=== PATIENT | female | born 1985 | race Caucasian/White ===

== ENCOUNTER 2022-08-05 11:08 | Emergency (ER) | payer OTHER, SELFPAY ==
[2022-08-05 11:10] VITALS: BP 158/103; PULSE 90; RESP 18; TEMP 36.7; O2SAT 100; BMI 21.2
--- NOTE | 2022-08-05 11:14 | EX.ED.DYSGE1 ---
HPI History of Present Illness Chief Complaint: Dizziness [facility] Medical History (Updated 08/05/22 @ 11:36 by Nery Sanches) History of ectopic Home Medications 08/05/22 [History Last Taken Unknown] promethazine 25 mg tablet 25 mg PO TID PRN nausea and vomiting #15 tabs 08/05/22 [Rx Last Taken Unknown] Allergy/AdvReac Type Severity Reaction Status Date / Time No Known Allergies Allergy Verified 08/05/22 11:11 Surgical History (Updated 08/05/22 @ 11:36 by Nery Sanches) History of tonsillectomy Social History Smoking Status: Never smoker EXAM Physical Exam Const Vital Signs: 08/05/22 11:10 08/05/22 11:34 08/05/22 11:34 Temperature 98.1 F Temperature Source Temporal Pulse Rate 90 97 Respiratory Rate 18 12 Respiratory Effort Normal Respiratory Pattern Normal Blood Pressure 158/103 H 130/83 H Blood Pressure Mean 121 98 Pulse Ox 100 100 Oxygen Delivery Method Room Air Room Air 08/05/22 13:14 08/05/22 14:50 Temperature 98.5 F Temperature Source Temporal Pulse Rate 115 H 82 Respiratory Rate 18 14 Respiratory Effort Respiratory Pattern Blood Pressure 132/81 H 110/72 Blood Pressure Mean 98 84 Pulse Ox 100 100 Oxygen Delivery Method Room Air Room Air MDM MDM MDM Narrative Medical decision making narrative: HISTORY OF PRESENT ILLNESS: 37-year-old female here with nausea, dizziness and blurred vision that began yesterday. The patient further states this began suddenly this morning with no inciting event. States she felt abdominal pain/crampy then felt flushed nauseous and dizzy. She notes she took Zofran at home with only minimal improvement in nausea. She denies any chest pain or shortness of breath or abdominal pain at this point. States her last period 4 weeks ago. Denies any vaginal bleeding or discharge. Denies any dysuria, hematuria, increased frequency of urination. Denies any diarrhea, recent travel. Denies any focal numbness, weakness, loss sensation, headache or head trauma. Patient does endorse drinking 1 beer last night which is typical for her. She denies excessive drinking or drinking on a daily basis. Denies any other drug use such as cocaine or methamphetamine. REVIEW OF SYSTEMS: Pertinent positives: Nausea, dizziness, blurry vision Pertinent negatives: focal weakness, syncope, headache, chest pain PHYSICAL EXAM: Nursing triage notes reviewed, Vital signs reviewed Constitutional: please see [facility] HENT: MMM Eyes: Pupils equal round and reactive to light, Extraocular muscles intact, visual acuity 20/25 bilaterally, visual pond intact Neck: No stridor, no JVD, full neck ROM Lungs: Clear to auscultation, No wheezing or rales. No increased work of breathing, no conversational dyspnea, no accessory muscle use, no nasal flaring. No respiratory distress noted Heart: Regular rate and rhythm, No murmurs, No rubs and No gallops, 2+ distal pulses (radial, femoral, posterior tibial) in all extremities Abdomen: Soft, there is no tenderness, rigidity, rebound or guarding, no obvious peritoneal signs, no palpable pulsatile abdominal masses, no auscultated abdominal bruit : No CVAT Extremities: No edema Neuro: Alert and oriented x3, neuro exam at baseline, cranial nerves II through XII are intact. No pain with extraocular muscle movement. There is negative test of skew. Normal speech. 5 of 5 strength in upper and lower extremities in flexion extension. Intact sensation to light touch in upper and lower extremity dermatomes. No truncal or extremity ataxia. No dysdiadochokinesia. Normal gait. 2+ reflexes. No meningeal signs. Negative Babinski. NIH of 0 Skin: No rash or lesions noted MEDICAL DECISION MAKING: Chief Complaint: Nausea, dizziness, blurred vision External records reviewed: No recent advanced imaging of the head noted in the chart [facility] Narrative: Patient was initially hemodynamically stable, afebrile, nontoxic-appearing. Neurologic exam without focal deficits. No focal cardiopulmonary abnormalities but abdominal exam was benign. I considered the following differential diagnosis: Posterior circulation CVA, dehydration, anemia, , intra-abdominal surgical pathology such as obstruction, perforation, I considered a posterior circulation CVA or other acute intracranial process given the patient's report of dizziness however she has a nonfocal neuro exam, NIH of 0 and a negative hints assessment. I have a low suspicion for acute CVA at this time and as such I do not obtain advanced imaging of the head. I was more concerned about a vasovagal response versus electrolyte abnormalities versus dehydration versus versus anemia. I obtained a broad lab and imaging work-up to further elucidate the etiology of the patient's complaints. Labs without evidence of myocardial ischemia, no anemia, no significant electrolyte abnormalities (noted mild hypokalemia will replace). No evidence of pancreatitis. Patient able to tolerate p.o. Repeat neurologic exams remained intact. There are no focal deficits. No clear life-limiting etiology could be ascertained. The patient ambulate without difficulty she is appropriate for discharge home. Factors affecting care: None Social determinants of health: Drank alcohol last night History obtained from others: The patient's Shared decision making: I will have a discussion with the patient and or visitors regarding risk/benefits of further testing or admission. They will be made aware of of the risk/benefits inherent in this decision they will be given the opportunity to voice understanding. Consults: None Lab Data Attestation: I reviewed the patient's lab results. Lab results narrative: EKG with normal sinus rhythm, normal axis, normal intervals, no STEMI CBC without leukocytosis, severe anemia, no thrombocytopenia. BMP with mild hypokalemia, no anion gap, no acute kidney injury LFTs show no evidence of hepatobiliary pathology. Troponin is negative, no evidence of myocardial ischemia Lipase is wnl indicating no pancreatic inflammation. Labs: Laboratory Results - last 24 hr 08/05/22 08/05/22 08/05/22 11:40 11:40 12:10 WBC 8.1 RBC 4.80 Hgb 13.6 Hct 40.7 MCV 84.8 MCH 28.3 MCHC 33.4 RDW Std Deviation 38.7 RDW Coeff of Terrence 12.5 Plt Count 301 MPV 11.4 Immature Gran % (Auto) 0.200 Neut % (Auto) 75.0 H Lymph % (Auto) 18.6 L [place] % (Auto) 4.2 Eos % (Auto) 1.6 Baso % (Auto) 0.4 Absolute Neuts (auto) 6.1 Absolute Lymphs (auto) 1.51 Nucleated RBC % 0 Sodium 140 Potassium 3.1 L Chloride 107 Carbon Dioxide 21.0 Anion Gap 12 BUN 8 Creatinine 0.82 Estim Creat Clear Calc 79.21 Est GFR (MDRD) Af Amer 102 Est GFR (MDRD) Non-Af 84 BUN/Creatinine Ratio 9.8 L Glucose 149 H Calcium 9.1 Total Bilirubin 0.40 AST 12 L ALT 16 Alkaline Phosphatase 72 Troponin I High Sens < 3 L Total Protein 8.0 Albumin 3.8 Globulin 4.2 Albumin/Globulin Ratio 0.9 Lipase 36 Urine Test Negative Radiography Chest X-Ray - ED: Read by ED Physician Diagnostic Testing: Clinical Impression(s) from Imaging Studies Chest X-Ray 08/05/22 12:25 IMPRESSION: Normal x-ray examination of the chest. Electronically Signed: Isael Lepe MD at 13:19 EDT Reading Location ID and State: [address] [place] [address] , Service support , Discharge Plan Triage Chief Complaint: Dizziness ED Provider: Malcolm Nuñez Dx/Rx/DC Orders Instructions: ED Near-Fainting- Vagal Reaction Prescriptions: New promethazine 25 mg tablet 25 mg PO TID PRN (Reason: nausea and vomiting) Qty: 15 0RF No Action Stand Alone Forms: ED Work / School Excuse Primary Care Provider: Care Physician,No Primary Referrals: Fransisco Garcia MD [Med Staff - [employer] Member] - Activity Restrictions/Additional Instructions: Thank you for trusting us with your care today! Please take Tylenol (2 pills, 650 mg), ibuprofen (2 pills, 400 mg) every 6 hours as needed for pain and fever control. Please return to the emergency department if your symptoms change or worsen. Please follow with your primary care physician for further outpatient evaluation and management. Disposition Disposition: Home, Self Care Discharge Date/Time: 08/05/22 15:01
[2022-08-05 11:34] VITALS: BP 130/83; PULSE 97; RESP 12; O2SAT 100
--- NOTE | 2022-08-05 11:37 | EKG12_ITS ---
Test Reason : DIZZINESS Blood Pressure : / mmHG Vent. Rate : 087 BPM Atrial Rate : 087 BPM P-R Int : 132 ms QRS Dur : 078 ms QT Int : 368 ms P-R-T Axes : 073 089 055 degrees QTc Int : 442 ms Normal sinus rhythm with sinus arrhythmia Nonspecific ST abnormality Abnormal ECG Confirmed by AIME MAI, JOSE DANIEL ([id number]), publishing editor VIPIN LYONS ([id number]) on 08/07/2022 10:46:56 AM Referred By: Confirmed By:JOSE DANIEL SALOMON MD
[2022-08-05 11:48] LABS: Absolute Lymphocyte Count 1.51 X10^3/uL (0.83-4.51); Absolute Neutrophil Count 6.1 X10^3/uL (2.0-7.7); Basophil# 0.03 X10^3/uL; Basophil% 0.4 % (0-1); Eosinophil# 0.13 X10^3/uL; Eosinophils% 1.6 % (0-5); Hematocrit 40.7 % (37-47); Hemoglobin 13.6 g/dL (12.0-15.0); Lymphocyte # 1.51 X10^3/ul (0.83-4.51); Lymphocyte % 18.6 % (19-41); Mean Corp Hgb Conc 33.4 g/dL (32-36); Mean Corpuscular Hgb 28.3 pg (27.0-32.0); Mean Corpuscular Volume 84.8 fL (81-99); Mean Platelet Vol. 11.4 fl (6.2-12.0); Monocyte# 0.34 X10^3/uL; Monocyte% 4.2 % (0-10); NRBC Flagged by Analyzer 0 % (0-5); Neutrophil # 6.08 X10^3/uL (2.7-7.7); Platelet Count 301 K/mm3 (150-450); RBC Distribution Width CV 12.5 % (11.6-14.6); RBC Distribution Width SD 38.7 fl (35.1-43.9); White Blood Count 8.1 K/mm3 (4.4-11.0)
[2022-08-05] MEDS: proMETHazine 25 MG/ML Syringe IM (11:51)
[2022-08-05] MEDS: 0.9% Normal Saline 1,000 ML 1000 ML IV (11:51)
[2022-08-05 12:07] LABS: ALB/GLOB Ratio 0.9 RATIO (0.9-2.4); AST(SGOT) 12 U/L (15-37); Alanine Aminotransfer ALT/SGPT 16 U/L (13-56); Albumin, Serum 3.8 g/dL (3.2-5.0); Alkaline Phosphatase 72 U/L (45-117); Anion Gap 12 (5-15); BUN 8 mg/dL (7-18); BUN/Creat Ratio 9.8 RATIO (10-20); Calcium,Total 9.1 mg/dL (8.5-10.1); Chloride 107 mmol/L (98-107); Creatinine, Serum 0.82 mg/dL (0.55-1.02); EST Glomerular Filtration Rate 84 mL/min (>60); Est Glom Filt Rate - Afr Amer 102 mL/min (>60); Estimated Creatinine Clearance 79.21 ml/min; Globulin 4.2 g/dL (2.2-4.2); Glucose 149 mg/dL (74-106); Lipase 36 U/L (13-75); Potassium 3.1 mmol/L (3.5-5.1); Sodium Level 140 mmol/L (136-145); Troponin-I HS < 3 pg/mL (3.0-54.0)
[2022-08-05 12:25] LABS: Internal QC Validated? YES +Cl - CLEAR BKGD; Pregnancy, Urine Negative Negative
--- NOTE | 2022-08-05 12:25 | RAD_ITS ---
STUDY: X-RAY CHEST REASON FOR EXAM: Female, 37 years old. Dizziness TECHNIQUE: 2 AP portable view of the chest. COMPARISON: None. FINDINGS: The lungs are clear and expanded. There is no demonstrated pleural abnormality. Normal size heart. Normal mediastinum and daniel. Normal visualized pulmonary arteries. Normal visualized aortic arch and descending thoracic aorta. Normal visualized thoracic spine. Normal visualized ribs, clavicles, and shoulders. There is no demonstrated abnormality of the visualized soft tissue structures of the upper abdomen. RAD/Chest 1 View (Portable) IMPRESSION: Normal x-ray examination of the chest. Electronically Signed: Isael Lepe MD at 13:19 EDT ,
[2022-08-05] MEDS: Potassium Chloride Oral Tablet 20 MEQ 40 MEQ PO (13:13)
[2022-08-05 13:14] VITALS: BP 132/81; PULSE 115; RESP 18; O2SAT 100
[2022-08-05 14:50] VITALS: BP 110/72; PULSE 82; RESP 14; TEMP 36.9; O2SAT 100
== END 2022-08-05 15:01 | disposition home or self-care (01) ==
PROVIDERS: Emergency Provider Emergency Medicine; Visit Provider Emergency Medicine
DX: R42 Dizziness and giddiness (principal); E87.6 Hypokalemia; R11.0 Nausea; H53.8 Other visual disturbances
CPT/HCPCS: 71045; 80053; 81025; 83690; 84484; 85025; 93005; 96360; 96372; 99284; J7030; A4216

== ENCOUNTER 2023-05-14 07:00 | Inpatient (IN) | payer OTHER, SELFPAY ==
[2023-05-14] VITALS (32 sets, daily range): BP systolic 110–168; BP diastolic 11–92; PULSE 76–117; RESP 16; TEMP 36.3–37.5; O2SAT 98–100; BMI 26.6
--- OUTSIDE RECORDS SUMMARY | 2023-05-14 07:08 | XMS RPT_ITS | CCD ---
Author Name Unknown Address [address] [place] [address] Organization [facility] Care Team Providers Care Container Finisher Name Role Phone Unavailable Primary Care Provider Unavailabl e GRACE, KARMON Referring Unavailable GRACE, KARMON Referring Unavailable MELANIE, JACOB L Referring Unavailable MELANIE, JACOB L Referring Unavailable SELF Referring Unavailable RAFAELA ROSE Attending Unavailable PROMISE, CONNIE Attending Unavailable PROMISE, CONNIE Attending Unavailable GRACE, KARMON Referring Unavailable MARIA EUGENIA SANCHEZ Attending Unavail able MELANIE, JACOB L Attending Unavailable MELANIE, JACOB L Referring Unavailable GRACE, KARMON Attending Unavailable GRACE, KARMON Attending Unavailable MELANIE, JACOB L Referring Unavailable GRACE, KARMON Attending Unavailable GRACE, KARMON Referring Unavailable GRACE, KARMON Referring Unavailable GRACE, KARMON Referring Unavailable LORRAINE PULLIAM Attending Unavailable MELANIE, JACOB L Attending Unavailable GRACE, KARMON Attending Unavailable MELANIE, JACOB L Attending Unavailable GRACE, KARMON Attending Unavailable PROMISE, CONNIE Attending Unavailable Medications Completed/Discontinued Medications Medication Drug Class(es) Dates Sig (Normalized) Sig (Original) vit/iron fum/folic ac ( 1 + 1 ORAL) (14 sources) vit/iro n fum/folic ac ( 1 + 1 ORAL) Problems Active Problems Problem Classification Problem Date Documented Da te Episodic/Chronic Other complications of (20 sources) Multigravida of advanced maternal age; Translations: [Supervision of elderly multigravida, unspecified trimester] Onset: 09-17-2022 09-17-2022 Episodic Other complications of (5 sources) High risk ; Translations: [Supervision of other high risk pregnancies, first trimester] 10-02-2022 Episodic Other complications of (1 source) Supervision of elderly multigravida, unspecified trimester; Translations: [Encounter for supervision of high risk multigravida of advanced maternal age, antepartum] Onset: 04-01-2023 Episodic Other complications of (1 source) Supervision of elderly multigravida, second trimester; Translations: [AMA (advanced maternal age) multigravida 35+, second trimester] Onset: 02-19-2023 Episodic Residual codes; unclassified (2 sources) Gestation period, 12 weeks; Translations: [12 weeks gestation of ] 10-30-2022 Episodic Residual codes; unclassified (1 source) Gestation period, 16 weeks; Translations: [16 weeks gestation of ] 11-27-2022 Episodic Residual codes; unclassified (1 source) Gestation period, 19 weeks; Translations: [19 weeks gestation of ] 12-24-2022 Episodic Residual codes; unclassified (1 source) Gestation period, 24 weeks; Translations: [24 weeks gestation of ] 01-22-2023 Episodic Residual codes; unclassified (1 source) Gestation period, 37 weeks; Translations: [37 weeks gestation of ] 04-25-2023 Episodic Residual codes; unclassified (1 source) Gestation period, 39 weeks; Translations: [39 weeks gestation of ] 05-08-2023 Episodic Residual codes; unclassified (1 source) 33 weeks gestation of ; Translations: [33 weeks gestation of ] Onset: 04-01-2023 Episodic Residual codes; unclassified (1 source) 24 weeks gestation of ; Translations: [24 weeks gestation of ] Onset: 02-19-2023 Episodic Past or Other Problems Problem Classification Problem Date Documented Date Episodic/Chronic Other complications of (13 sources) H/O: depression; Translations: [History of depression, currently ] Onset: 09-17-2022 09-17-2022 Episodic Other complications of (1 source) Supervision of elderly multigravida, first trimester; Translations: [AMA (advanced maternal age) multigravida 35+, first trimester] Onset: 12-24-2022 Episodic Other complications of (1 source) Supervision of high risk , unspecified, second trimester; Translations: [Supervision of high risk in second trimester] Onset: 12-24-2022 Episodic Other complications of (1 source) Supervision of other high risk pregnancies, first trimester; Translations: [Supervision of other high risk pregnancies, first trimester] Onset: 10-30-2022 Episodic Other complications of (1 source) Supervision of with history of ectopic , unspecified trimester; Translations: [ with history of ectopic , antepartum] Onset: 09-17-2022 Episodic Other and delivery including normal (4 sources) with uncertain dates; Translations: [Encounter for supervision of normal , unspecified, first trimester] Onset: 10-30-2022 10-02-2022 Episodic Other screening for suspected conditions (not mental disorders or infectious disease) (3 sources) Patient encounter status; Translations: [Encounter for screening, unspecified] Onset: 10-30-2022 10-02-2022 Episodic Residual codes; unclassified (15 sources) H/O: ectopic ; Translations: [Personal history of other complications of , childbirth and the puerperium] Onset: 09-17-2022 Episodic Residual codes; unclassified (1 source) 16 weeks gestation of ; Translations: [16 weeks gestation of ] Onset: 11-30-2022 Episodic Residual codes; unclassified (1 source) 12 weeks gestation of ; Translations: [12 weeks gestation of ] Onset: 11-02-2022 Episodic Residual codes; unclassified (1 source) Personal history of other complications of , childbirth and the puerperium; Translations: [History of ectopic ] Onset: 09-11-2022 Episodic Results Test Name Value Interpretation Reference Range Facil ity Vital Signs Date Time Vital Sign Value Performing Clinician Shahram gunderson 05-08-2023 15:47-0500 Body weight 69.4 kg Maria Eugenia Belcher MD Work Phone: [facility] 05-08-2023 15:47-0500 Diastolic blood pressure 78 mm[Hg] Maria Eugenia Belcher MD Work Phone: [facility] 05-08-2023 15:47-0500 Systolic blood pressure 116 mm[Hg] Maria Eugenia Belcher MD Work Phone: [facility] 04-25-2023 16:21-0500 Body weight 68.13 kg Rafaela Rose APRN.CNM Work Phone: [facility] 04-25-2023 16:21-0500 Diastolic blood pressure 62 mm[Hg] Rafaela Rose SERVICE CENTER SPECIALIST.CNM Work Phone: [facility] 04-25-2023 16:21-0500 Systolic blood pressure 104 mm[Hg] Rafaela Rose SERVICE CENTER SPECIALIST.CNM Work Phone: [facility] 01-22-2023 09:40-0400 Body weight 60.33 kg Jacob De Jesus MD Work Phone: [facility] 01-22-2023 09:40-0400 Diastolic blood pressure 56 mm[Hg] Jacob De Jesus MD Work Phone: [facility] 01-22-2023 09:40-0400 Systolic blood pressure 94 mm[Hg] Jacob De Jesus MD Work Phone: [facility] 12-24-2022 11:04-0400 Body weight 57.34 kg Connie Parra MD Work Phone: [facility] 12-24-2022 11:04-0400 Diastolic blood pressure 60 mm[Hg] Connie Parra MD Work Phone: [facility] 12-24-2022 11:04-0400 Systolic blood pressure 96 mm[Hg] Connie Parra MD Work Phone: [facility] 11-27-2022 09:43-0400 Body weight 55.79 kg Jeremias Edwards MD Work Phone: [facility] 11-27-2022 09:43-0400 Diastolic blood pressure 60 mm[Hg] Jeremias Edwards MD Work Phone: [facility] 11-27-2022 09:43-0400 Systolic blood pressure 92 mm[Hg] Jeremias Edwards MD Work Phone: [facility] 10-30-2022 08:52-0400 Body weight 53.89 kg Jeremias Edwards MD Work Phone: [facility] 10-30-2022 08:52-0400 Diastolic blood pressure 68 mm[Hg] Jeremias Edwards MD Work Phone: [facility] 10-30-2022 08:52-0400 Systolic blood pressure 100 mm[Hg] Jeremias Edwards MD Work Phone: [facility] 10-02-2022 10:22-0400 Diastolic blood pressure 64 mm[Hg] Jacob De Jesus MD Work Phone: [facility] 10-02-2022 10:22-0400 Systolic blood pressure 102 mm[Hg] Jacob De Jesus MD Work Phone: [facility] Encounters Encounter Date Encounter Type Care Provider Facility Start: 05-08-2023 End: 05-08-2023 ambulatory MARIA EUGENIA BELCHER Facility:[facility] Start: 05-08-2023 End: 05-08-2023 Patient encounter procedure Maria Eugenia Belcher MD Work Phone: OB/Gynecology Procedures Date Procedure Procedure Detail Performing Clinician Start: 05-08-2023 URINE OB DIP B/O Maria Eugenia Belcher MD Work Phone: Start: 04-25-2023 URINE OB DIP B/O Evita Rose SERVICE CENTER SPECIALIST.CNM Work Phone: Start: 01-22-2023 URINE OB DIP B/O Marcus De Jesus MD Work Phone: Start: 12-24-2022 URINE OB DIP B/O Connie gonzalez MD Work Phone: Start: 11-27-2022 URINE OB DIP B/O Jeremias Edwards MD Work Phone: Start: 10-30-2022 Antibody screen JEREMIAS EDWARDS Plan of Treatment Date Care Activity Detail Author Start: 02-19-2033 Urine microalbumin profile DTaP,Tdap,Td Vaccine (5 - Td or Tdap) [facility] Start: 11-21-2026 HPV TESTING HPV TESTING [facility] Start: 11-21-2026 PAP TESTING PAP TESTING [facility] Start: 11-21-2026 Screening for malignant neoplasm of cervix [facility] Start: 01-04-2026 Urine microalbumin profile DTaP,Tdap,Td Vaccine (2 - Td or Tdap) [facility] Start: 03-25-2023 Depression Assessment Depression Assessment [facility] Start: 01-22-2023 End: 04-23-2023 CBC W Auto Differential panel - Blood CBC + DIFF Lab Routine AMA (advanced maternal age) multigravida 35+, second trimester 24 weeks gestation of Expected: 01/22/2023, Expires: 04/23/2023 [facility] Work Phone: Immunizations Immunization Date Immunization Notes Care Provider Nabila kemp 03-21-2023 respiratory syncytia l virus (RSV) vaccine, bivalent (ABRYSVO) Rafaela Plotts SERVICE CENTER SPECIALIST.CNM Work Phone: [facility] 02-19-2023 tetanus toxoid, redu steffanie diphtheria toxoid, and acellular pertussis vaccine, adsorbed Rafaela Plotts SERVICE CENTER SPECIALIST.CNM Work Phone: [facility] 02-01-2023 influenza, injectabl e, quadrivalent, preservative free Rafaela Plotts SERVICE CENTER SPECIALIST.CNM Work Phone: [facility] 12-04-2017 influenza virus vacc ine, unspecified formulation Connie Parra MD Work Phone: [facility] 12-12-2016 influenza, injectabl e, quadrivalent, preservative free Rafaela Plotts SERVICE CENTER SPECIALIST.CNM Work Phone: [facility] 01-05-2016 influenza, injectabl e, quadrivalent, preservative free Rafaela Plotts SERVICE CENTER SPECIALIST.CNM Work Phone: [facility] Payers Date Payer Category Payer Private Health Insurance [id number] 2022 Private Health Insurance [id number] 2021 Private Health Insurance [id number] 2021 Private Health Insurance [id number] Social History Date Type Detail Facility Start: [facility]-21-[address] [facility] Start: 11-21-2021 Tobacco use and exposure Smoke less tobacco non-user [facility] Start: 11-21-2021 End: 09-11-2022 Alcohol intake Current drinker of alcohol (finding) [facility] Start: 1985 Sex Assigned At Not on file [facility] Start: 09-17-2022 End: 04-25-2023 Alcohol intake Ex-drinker (finding) [facility] Start: 09-17-2022 Education 15 [facility] Start: 08-21-2022 [facility] Start: 09-17-2022 End: 10-02-2022 History of Social function [facility] Start: 09-17-2022 End: 10-02-2022 Tobacco use panel [facility] National Score (1-10 0), lower number is lower risk 60 [facility] Goals Date Patient Goal Desired Activity /State Personal health goal Clinical Notes 08-15-2020 to 05-08-2023 Quick Notes - Maria Eugenia Sanchez MD - 05/08/2023 4:10 PM ESTPatient InstructionsVipin Saleh - 05/01/2023 1:20 PM ESTPatient InstructionsPatient InstructionsPatient Instructions Note Date & Type Note Facility 05-08-2023 Miscellaneous Notes Formattin g of this note might be different from the original. DM- Pt doing well today. Denies Vaginal Bleeding, Leaking fluid, or contractions. Pt reports good movement. Declines membrane sweep. IOL scheduled at 40 weeks. Kick counts and labor reviewed. Maria Eugenia Olivas MD documented in this encounter [facility] 05-08-2023 Instructions Shila Lang Ma - 05/08/2023 3:46 PM EST SEQUENTIAL SCREENINGS The [facility] offers sequential screenings for women who are interested in screenings for chromosomal abnormalities and certain defects during a . The sequential screen combines ultrasound and blood tests to determine the risk of chromosomal abnormalities, including Down's Syndrome (Trisomy 21) and Trisomy 18, as well as open neural tube defects including spina bifida. Ultrasound examination is performed between 11 weeks and 13 weeks gestational age. Blood tests are drawn after the ultrasound and again later in the between 15 and 21 weeks gestational age. Please let your physician know if you are interested in this testing. It will require an appointment with our fire alarm technician. This is not an ultrasound performed by a physician in our office during a routine visit. SIGNS AND SYMPTOMS OF LABOR 1. Contractions every 10 minutes or more often 2. Clear, pink, or brownish fluid (water) leaking from vagina 3. Feeling that baby is pushing down, pressure 4. Low, dull backache 5. Cramps that feel like a period 6. Cramps with or without diarrhea If you notice any of the above symptoms, contact our office at [phone] and ask to speak with a nurse. After hours, you can call doctors registry at [phone] OR call [facility] at [phone] and ask to have the doctor machine ironer paged. If you consider this an emergency, dial 91 or go to your nearest emergency department. NEED HELP? Are you dealing with a violent or abusive relationship? Are you a victim of rape or sexual assult? Call [facility] ([place]) 24 hour Crisis Hotline: 662.269.5472 or 713-515-7135. MANUAL Your Guide to a Healthy manual is now on-line. Visit [email or web address] to download your free copy documented in this encounter [facility] 05-01-2023 Note HNO ID: [id number] Author: ?, ?, ? Service: ? Author Type: ? Type: Progress Notes Filed: 05/01/2023 13:26 Note Text: POPULATION HEALTH NAVIGATION OUTREACH Action/FY Patient called back and said that she selected [facility]. Updated OB/PEDS field. OB/PEDS Patient Identified by Name and : YES, via phone Outreach Outcome/Action OB/PEDS field updated Did you use a PCP flex slot to schedule this appointment? N/A Navigation Signature: Vipin Gaviria May 01, 2023 1:20 PM [facility] 05-01-2023 Note Patient Outreach (FERN TNJACE) TRUONGTAM ([id number]) 1985 F Date Time Provider Department 05/01/23 VIPIN MACIAS) TALI During your visit today, we recorded the following information about you: Vipin Saleh 05/01/2023 1:26 PM Signed POPULATION HEALTH NAVIGATION OUTREACH Action/FYI Patient called back and said that she selected [facility]. Updated OB/PEDS field. OB/PEDS Patient Identified by Name and : YES, via phone Outreach Outcome/Action OB/PEDS field updated Did you use a PCP flex slot to schedule this appointment? N/A Navigation Signature: Vipin Gaviria May 01, 2023 1:20 PM Allergies As of Date: 05/01/2023 (No Known Allergies) Date Reviewed: 04/29/2023 Reviewed by: Meera Lai Ma - Fully Assessed Reason for Visit: Population Health Navigation Outreach [[id number]] Cmt: OB/PEDS Prescriptions as of 05/01/2023 - vit/iron fum/folic ac ( 1 + 1 ORAL) Problem List As Of Date 05/01/2023 Noted Resolved Antepartum multigravida of advanced maternal ag*09/17/2022 with history of ectopic , an*09/17/2022 History of depression, currently pre*09/17/2022 Encounter Status:Closed by VIPIN SALEH on 05/01/23 [facility] 05-01-2023 History of Presen t illness Narrative POPULATION HEALTH NAVIGATION OUTREACH Action/FYI Patient called back and said that she selected [facility]. Updated OB/PEDS field. OB/PEDS Patient Identified by Name and : YES, via phone Outreach Outcome/Action OB/PEDS field updated Did you use a PCP flex slot to schedule this appointment? N/A Navigation Signature: Vipin Gaviria May 01, 2023 1:20 PM documented in this encounter [facility] 04-25-2023 Miscellaneous Notes Formattin g of this note might be different from the original. Tam Guerin is a 38 year old female who presents at 37w2d for a routine visit. Good movement. Denies headache, visual changes, chest pain, shortness of breath, vaginal bleeding, leakage of fluid, or dysuria. Feeling well, no complaints. Size equal to dates. 32 lbs TWG. ASSESSMENT/PLAN: 1. Encounter for supervision of high risk multigravida of advanced maternal age, antepartum - ICD9: V23.82, ICD10: O09.529 (primary diagnosis) 2. 37 weeks gestation of - ICD9: V22.2, ICD10: Z3A.37 3. AMA (advanced maternal age) multigravida 35+, second trimester - ICD9: 659.63, ICD10: O09.522 - MOD- patient desires induction of labor at 40 weeks - GBS negative - Labor precautions reviewed. RTC in 1 week or sooner if needed Rafaela Rose APRN.CNM documented in this encounter [facility] 04-25-2023 Instructions Shabbir Vera Cma - 04/25/2023 4:16 PM EST SEQUENTIAL SCREENINGS The [facility] offers sequential screenings for women who are interested in screenings for chromosomal abnormalities and certain defects during a . The sequential screen combines ultrasound and blood tests to determine the risk of chromosomal abnormalities, including Down's Syndrome (Trisomy 21) and Trisomy 18, as well as open neural tube defects including spina bifida. Ultrasound examination is performed between 11 weeks and 13 weeks gestational age. Blood tests are drawn after the ultrasound and again later in the between 15 and 21 weeks gestational age. Please let your physician know if you are interested in this testing. It will require an appointment with our fire alarm technician. This is not an ultrasound performed by a physician in our office during a routine visit. SIGNS AND SYMPTOMS OF LABOR 1. Contractions every 10 minutes or more often 2. Clear, pink, or brownish fluid (water) leaking from vagina 3. Feeling that baby is pushing down, pressure 4. Low, dull backache 5. Cramps that feel like a period 6. Cramps with or without diarrhea If you notice any of the above symptoms, contact our office at [phone] and ask to speak with a nurse. After hours, you can call doctors registry at [phone] OR call [facility] at [phone] and ask to have the doctor machine ironer paged. If you consider this an emergency, dial [phone] or go to your nearest emergency department. NEED HELP? Are you dealing with a violent or abusive relationship? Are you a victim of rape or sexual assult? Call [facility] ([place]) 24 hour Crisis Hotline: 847.299.6405 or 810-358-1900. MANUAL Your Guide to a Healthy manual is now on-line. Visit [email or web address] to download your free copy documented in this encounter [facility] 02-19-2023 Note HNO ID: [id number] Author: Teresa Miranda Ma Service: ? Author Type: ? Type: Progress Notes Filed: 02/19/2023 12:32 PM Note Text: Patient identified by name and date of . Tam Guerin presents today for a vaccination of Tdap. Patient denies an allergy to latex: yes Patient denies a severe (life-threatening) allergy to a previous dose of Tdap, DTP, DTaP, DT or Td vaccine. Yes Patient denies history of epilepsy or neurological problems: Yes Patient is afebrile and denies being moderately or severely ill: Yes Patient denies history of Guillain-[place] Syndrome (a severe paralytic illness): Yes Tdap Adacel injection was given without incident. See immunizations for details of immunizations administered today. VIS sheet provided: Yes Provider Jeremias Edwards MD was present in office at time of injection. [facility] 01-22-2023 Miscellaneous Notes Formattin g of this note might be different from the original. RR- VB No. LOF No. CTXS No. Movement: present. Other c/o: No. Medication list reviewed. Physical Exam See Flow Sheet Abd: soft, nontender, gravid Ext: edema: Trace A/P 24w0d Estimated Date of Delivery: 05/14/23 28 week labs next visit f/u in 4 weeks or prn . Jacob De Jesus M.D. documented in this encounter [facility] 01-22-2023 Instructions Precious Jones Shila - 01/22/2023 9:36 AM EDT SEQUENTIAL SCREENINGS The [facility] offers sequential screenings for women who are interested in screenings for chromosomal abnormalities and certain defects during a . The sequential screen combines ultrasound and blood tests to determine the risk of chromosomal abnormalities, including Down's Syndrome (Trisomy 21) and Trisomy 18, as well as open neural tube defects including spina bifida. Ultrasound examination is performed between 11 weeks and 13 weeks gestational age. Blood tests are drawn after the ultrasound and again later in the between 15 and 21 weeks gestational age. Please let your physician know if you are interested in this testing. It will require an appointment with our fire alarm technician. This is not an ultrasound performed by a physician in our office during a routine visit. SIGNS AND SYMPTOMS OF LABOR 1. Contractions every 10 minutes or more often 2. Clear, pink, or brownish fluid (water) leaking from vagina 3. Feeling that baby is pushing down, pressure 4. Low, dull backache 5. Cramps that feel like a period 6. Cramps with or without diarrhea If you notice any of the above symptoms, contact our office at [phone] and ask to speak with a nurse. After hours, you can call doctors registry at [phone] OR call [facility] at [phone] and ask to have the doctor machine ironer paged. If you consider this an emergency, dial 7 or go to your nearest emergency department. NEED HELP? Are you dealing with a violent or abusive relationship? Are you a victim of rape or sexual assult? Call [facility] ([place]) 24 hour Crisis Hotline: 139.583.5187 or 115-618-5390. MANUAL Your Guide to a Healthy manual is now on-line. Visit [email or web address] to download your free copy documented in this encounter [facility] 12-24-2022 Miscellaneous Notes Formattin g of this note might be different from the original. SW- Pt doing well. No pain, vb, lof. +FM. Anatomy US today and final report pending. Questions answered. RTO 4 wks. Connie Parra DO documented in this encounter [facility] 12-24-2022 Instructions Vipin Quiroz MA - 12/24/2022 10:57 AM EDT SEQUENTIAL SCREENINGS The [facility] offers sequential screenings for women who are interested in screenings for chromosomal abnormalities and certain defects during a . The sequential screen combines ultrasound and blood tests to determine the risk of chromosomal abnormalities, including Down's Syndrome (Trisomy 21) and Trisomy 18, as well as open neural tube defects including spina bifida. Ultrasound examination is performed between 11 weeks and 13 weeks gestational age. Blood tests are drawn after the ultrasound and again later in the between 15 and 21 weeks gestational age. Please let your physician know if you are interested in this testing. It will require an appointment with our fire alarm technician. This is not an ultrasound performed by a physician in our office during a routine visit. SIGNS AND SYMPTOMS OF LABOR 1. Contractions every 10 minutes or more often 2. Clear, pink, or brownish fluid (water) leaking from vagina 3. Feeling that baby is pushing down, pressure 4. Low, dull backache 5. Cramps that feel like a period 6. Cramps with or without diarrhea If you notice any of the above symptoms, contact our office at [phone] and ask to speak with a nurse. After hours, you can call doctors registry at [phone] OR call [facility] at [phone] and ask to have the doctor machine ironer paged. If you consider this an emergency, dial or go to your nearest emergency department. NEED HELP? Are you dealing with a violent or abusive relationship? Are you a victim of rape or sexual assult? Call [facility] ([place]) 24 hour Crisis Hotline: 334.986.8699 or 415-227-4880. MANUAL Your Guide to a Healthy manual is now on-line. Visit [email or web address] to download your free copy documented in this encounter [facility] 11-27-2022 Miscellaneous Notes Formattin g of this note might be different from the original. KJ - No VB/LOF/ctxs. A&P: AFP today Anatomy US ordered Jeremias Edwards MD documented in this encounter [facility] 11-27-2022 Instructions Masters Teresa Jones - 11/27/2022 9:36 AM EDT SEQUENTIAL SCREENINGS The [facility] offers sequential screenings for women who are interested in screenings for chromosomal abnormalities and certain defects during a . The sequential screen combines ultrasound and blood tests to determine the risk of chromosomal abnormalities, including Down's Syndrome (Trisomy 21) and Trisomy 18, as well as open neural tube defects including spina bifida. Ultrasound examination is performed between 11 weeks and 13 weeks gestational age. Blood tests are drawn after the ultrasound and again later in the between 15 and 21 weeks gestational age. Please let your physician know if you are interested in this testing. It will require an appointment with our fire alarm technician. This is not an ultrasound performed by a physician in our office during a routine visit. SIGNS AND SYMPTOMS OF LABOR 1. Contractions every 10 minutes or more often 2. Clear, pink, or brownish fluid (water) leaking from vagina 3. Feeling that baby is pushing down, pressure 4. Low, dull backache 5. Cramps that feel like a period 6. Cramps with or without diarrhea If you notice any of the above symptoms, contact our office at [phone] and ask to speak with a nurse. After hours, you can call doctors registry at [phone] OR call [facility] at [phone] and ask to have the doctor machine ironer paged. If you consider this an emergency, dial 9-1-1 or go to your nearest emergency department. NEED HELP? Are you dealing with a violent or abusive relationship? Are you a victim of rape or sexual assult? Call [facility] ([place]) 24 hour Crisis Hotline: 550.314.2905 or 318-782-1583. MANUAL Your Guide to a Healthy manual is now on-line. Visit [email or web address] to download your free copy documented in this encounter [facility] 10-30-2022 Miscellaneous Notes Formattin g of this note might be different from the original. Anatomy ultrasound reviewed. No abnormalities identified. Follow up as clinically indicated. Please place copy in ob chart. Jacob De Jesus MD documented in this encounter [facility] 10-30-2022 Miscellaneous Notes Formattin g of this note might be different from the original. KJ - Patient had spotting with urination 2 days ago but denies other VB. No ctxs/LOF. A&P: NT today NIPT ordered AMA - discussed 81mg aspirin and patient is considering Jeremias Edwards MD documented in this encounter [facility] 10-30-2022 Instructions Vipin Quiroz MA - 10/30/2022 8:13 AM EDT SEQUENTIAL SCREENINGS The [facility] offers sequential screenings for women who are interested in screenings for chromosomal abnormalities and certain defects during a . The sequential screen combines ultrasound and blood tests to determine the risk of chromosomal abnormalities, including Down's Syndrome (Trisomy 21) and Trisomy 18, as well as open neural tube defects including spina bifida. Ultrasound examination is performed between 11 weeks and 13 weeks gestational age. Blood tests are drawn after the ultrasound and again later in the between 15 and 21 weeks gestational age. Please let your physician know if you are interested in this testing. It will require an appointment with our fire alarm technician. This is not an ultrasound performed by a physician in our office during a routine visit. SIGNS AND SYMPTOMS OF LABOR 1. Contractions every 10 minutes or more often 2. Clear, pink, or brownish fluid (water) leaking from vagina 3. Feeling that baby is pushing down, pressure 4. Low, dull backache 5. Cramps that feel like a period 6. Cramps with or without diarrhea If you notice any of the above symptoms, contact our office at [phone] and ask to speak with a nurse. After hours, you can call doctors registry at [phone] OR call [facility] at [phone] and ask to have the doctor machine ironer paged. If you consider this an emergency, dial 1-1-1 or go to your nearest emergency department. NEED HELP? Are you dealing with a violent or abusive relationship? Are you a victim of rape or sexual assult? Call [facility] ([place]) 24 hour Crisis Hotline: 887.549.7555 or 489-285-5411. MANUAL Your Guide to a Healthy manual is now on-line. Visit [email or web address] to download your free copy documented in this encounter [facility] 10-02-2022 Note HNO ID: [id number] Author: Jacob De Jesus MD Service: ? Author Type: Physician Type: Progress Notes Filed: 10/02/2022 11:06 AM Note Text: OB point of care ultrasound was performed. See imaging tab for details. Shila Lang Ma INITIAL OB ASSESSMENT OB Provider: Shila Lang Ma HPI: Tam is a 37 year old Unavailable here to establish Obstetrical Care. Patient's last menstrual period was 08/07/2022 (approximate). from OB Dating Form. Cycles regular was planned Complaints: nausea OB History T1 L1 SAB0 IAB0 Ectopic1 Multiple0 Live Births1 Previous history: Prior : never History of 4th degree laceration: No History of shoulder dystocia: No History of Hypertensive disorders including pre-eclampsia, chronic hypertension or gestational hypertension: No History of gestational diabetes: No Patient's Risk Screening for delivery: MEDICAL/PSYCHOSOCIAL HISTORY: History of hemorrhage or bleeding concerns: No Thyroid Disease: No History of chronic hypertension: No History of pre-existing diabetes: No No results found for: ABORHD No weight on file for this encounter. History of abnormal pap: No Prior treatment for cervical dysplasia: none. 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 Do you have any history of depression, anxiety, PTSD, eating disorders or other mood problems: No Do you have any safety concerns or history of traumatic events that you would like to discuss with your provider: No Depression: had some PP depression after last delivery OB Depression and Anxiety Screening- This Encounter (since 10/01/2022) None GENETIC SCREENING: Partner present: Yes Patient verbalized knowledge of partner family health history: No Do you or your partner have any personal or family history of defects not previously discussed: No Do you have history of a complicated by anomaly, genetic condition, or demise: No Marital Status: Partner: Name: Richi Age: 38 Occupation: [employer] Gender: Male History of STDs: None PAST MEDICAL HISTORY Diagnosis Date Anemia Ectopic depression PAST SURGICAL HISTORY Procedure Laterality Date LAPAROSCOPIC-MANAGEMENT OF ECTOPIC Right 06/2017 right tube rupture PAST SURGICAL HISTORY OF wisdom teeth TONSILLECTOMY AND ADENOIDECTOMY Current Outpatient Medications Medication Sig Dispense Refill vit/iron fum/folic ac ( 1 + 1 ORAL) No current facility-administered medications for this visit. Allergies As of Date: 10/02/2022 (No Known Allergies) Fully Assessed 10/02/2022 Does patient have penicillin allergy: No REVIEW OF SYSTEMS: GENERAL: Negative for: Fever or Chills HEENT: Negative for: Headache, Impaired Vision, Ringing in Ears, Nosebleeds NECK: Negative for: Swelling, Pain, Stiffness RESPIRATORY: Negative for: Cough, Shortness of breath, Wheezing GASTROINTESTINAL: Negative for: Heartburn, Constipation, Diarrhea, Blood in stool, Vomiting MUSCULOSKELETAL: Negative for: Muscle or joint pain, stiffness, Joint swelling NEUROLOGIC/PSYCHIATRIC: Negative for: Weakness, Paralysis, Numbness, Tingling, Tremor, Anxiety, Depression, Memory loss SKIN: Negative for: Rash, Itching GENITOURINARY: Negative for: vaginal itching, vaginal discharge, hematuria or dysuria PHYSICAL EXAM: LMP 08/07/2022 GENERAL: pleasant in no apparent distress DERMATOLOGY: Normal, without lesions, non-icteric, and non-hirsute NECK: Supple, full range of motion, no adenopathy, and thyroid normal CHEST: Normal inspiratory effort BREAST: soft, non-tender, symmetric, no dominant mass, normal nipple-areolar complex, no lymphadenopathy, and no nipple discharge ABDOMEN: soft, non-tender, and no masses NEURO: alert and oriented x3,exam grossly non-focal PELVIS: External genitalia normal without lesions. Perineal body intact. No vaginal or cervical lesions. Cervix closed. Uterus 8 week size. No adnexal masses or tenderness. Clinical Pelvimetry: Pelvimetry clinically assessed as adequate Limited OB ultrasound exam: single intrauterine and positive cardiac activity OB Risk Screening: Completed, positive findings include: Patient will be less than 17 or greater than 34 at the time of Delivery ASSESSMENT: 37 year old at 8w0d wks gestational age PLAN: 1) Patient oriented to practice. Discussed routine OB labs including STD/HIV. Discussed aneuploidy and carrier screening. Regarding aneuploidy screening, nuchal translucency/first trimester early anatomy ultrasound and NIPT were discussed. Re (more content not included)... [facility] 10-02-2022 History of Presen t illness Narrative OB point of care ultrasound was performed. See imaging tab for details. Shila Lang Ma INITIAL OB ASSESSMENT OB Provider: Shila Lang Ma HPI: Tam is a 37 year old Unavailable here to establish Obstetrical Care. Patient's last menstrual period was 08/07/2022 (approximate). from OB Dating Form. Cycles regular was planned Complaints: nausea OB History T1 L1 SAB0 IAB0 Ectopic1 Multiple0 Live Births1 Previous history: Prior : never History of 4th degree laceration: No History of shoulder dystocia: No History of Hypertensive disorders including pre-eclampsia, chronic hypertension or gestational hypertension: No History of gestational diabetes: No Patient's Risk Screening for delivery: MEDICAL/PSYCHOSOCIAL HISTORY: History of hemorrhage or bleeding concerns: No Thyroid Disease: No History of chronic hypertension: No History of pre-existing diabetes: No No results found for: ABORHD No weight on file for this encounter. History of abnormal pap: No Prior treatment for cervical dysplasia: none. 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 Do you have any history of depression, anxiety, PTSD, eating disorders or other mood problems: No Do you have any safety concerns or history of traumatic events that you would like to discuss with your provider: No Depression: had some PP depression after last delivery OB Depression and Anxiety Screening- This Encounter (since 10/01/2022) None GENETIC SCREENING: Partner present: Yes Patient verbalized knowledge of partner family health history: No Do you or your partner have any personal or family history of defects not previously discussed: No Do you have history of a complicated by anomaly, genetic condition, or demise: No Marital Status: Partner: Name: Richi Age: 38 Occupation: [employer] Gender: Male History of STDs: None PAST MEDICAL HISTORY Diagnosis Date Anemia Ectopic depression PAST SURGICAL HISTORY Procedure Laterality Date LAPAROSCOPIC-MANAGEMENT OF ECTOPIC Right 06/2017 right tube rupture PAST SURGICAL HISTORY OF wisdom teeth TONSILLECTOMY & ADENOIDECTOMY <AGE 14 Current Outpatient Medications Medication Sig Dispense Refill vit/iron fum/folic ac ( 1 + 1 ORAL) No current facility-administered medications for this visit. Allergies As of Date: 10/02/2022 (No Known Allergies) Fully Assessed 10/02/2022 Does patient have penicillin allergy: No REVIEW OF SYSTEMS: GENERAL: Negative for: Fever or Chills HEENT: Negative for: Headache, Impaired Vision, Ringing in Ears, Nosebleeds NECK: Negative for: Swelling, Pain, Stiffness RESPIRATORY: Negative for: Cough, Shortness of breath, Wheezing GASTROINTESTINAL: Negative for: Heartburn, Constipation, Diarrhea, Blood in stool, Vomiting MUSCULOSKELETAL: Negative for: Muscle or joint pain, stiffness, Joint swelling NEUROLOGIC/PSYCHIATRIC: Negative for: Weakness, Paralysis, Numbness, Tingling, Tremor, Anxiety, Depression, Memory loss SKIN: Negative for: Rash, Itching GENITOURINARY: Negative for: vaginal itching, vaginal discharge, hematuria or dysuria PHYSICAL EXAM: LMP 08/07/2022 GENERAL: pleasant in no apparent distress DERMATOLOGY: Normal, without lesions, non-icteric, and non-hirsute NECK: Supple, full range of motion, no adenopathy, and thyroid normal CHEST: Normal inspiratory effort BREAST: soft, non-tender, symmetric, no dominant mass, normal nipple-areolar complex, no lymphadenopathy, and no nipple discharge ABDOMEN: soft, non-tender, and no masses NEURO: alert and oriented x3,exam grossly non-focal PELVIS: External genitalia normal without lesions. Perineal body intact. No vaginal or cervical lesions. Cervix closed. Uterus 8 week size. No adnexal masses or tenderness. Clinical Pelvimetry: Pelvimetry clinically assessed as adequate Limited OB ultrasound exam: single intrauterine and positive cardiac activity OB Risk Screening: Completed, positive findings include: Patient will be less than 17 or greater than 34 at the time of Delivery ASSESSMENT: 37 year old at 8w0d wks gestational age PLAN: 1) Patient oriented to practice. Discussed routine OB labs including STD/HIV. Discussed aneuploidy and carrier screening. Regarding aneuploidy screening, nuchal translucency/first trimester early anatomy ultrasound and NIPT were discussed. Regarding carrier screening, the myriad screen was discussed. The risks/benefits and limitations of NIPT/aneuploidy screening were reviewed including the potential for false negative and false positive results. We discussed the availability of professional-society guided carrier screening and reviewed the conditions screened and limitations of screening. The availability of genetic counseling was reviewed. Information on aneuploidy/carrier screening was provided. The patient chooses: Aneuploidy screening: chooses to proceed with First trimester early anatomy ultrasound (12-13w6d) and NIPT (10 weeks) and Carrier screening: Declines 2) ASA candidate due to AMA but did not have preeclampsia 2 years ago 3) nausea of , trying vit b6 and emeka for now, contact office if worsens Follow up in 4 weeks or sooner prn. Jacob De Jesus MD documented in this encounter [facility] 10-02-2022 Instructions Shila Lang Ma - 10/02/2022 10:12 AM EDT Please select the following link to access the [facility] Your Guide to a Healthy . [email or web address] documented in this encounter [facility] 09-17-2022 Note HNO ID: [id number] Author: Maria G Barriga RN Service: ? Author Type: ? Type: Progress Notes Filed: 09/17/2022 12:05 PM Note Text: # 1 - Date: 06/2017, Sex: None, Weight: None, GA: 6w0d, Delivery: None, Apgar1: None, Apgar5: None, Living: None, Comments: None # 2 - Date: 09/07/20, Sex: Female, Weight: 7 lb 6 oz (3.345 kg), GA: 40w1d, Delivery: Vaginal, Vacuum (Extractor), Apgar1: None, Apgar5: None, Living: Living, Comments: anemia ,elective induction, nuchal cord x2, left labial lac repaired # 3 - Date: None, Sex: None, Weight: None, GA: None, Delivery: None, Apgar1: None, Apgar5: None, Living: None, Comments: None [facility] 09-17-2022 History of Presen t illness Narrative # 1 - Date: 06/2017, Sex: None, Weight: None, GA: 6w0d, Delivery: None, Apgar1: None, Apgar5: None, Living: None, Comments: None # 2 - Date: 09/07/20, Sex: Female, Weight: 7 lb 6 oz (3.345 kg), GA: 40w1d, Delivery: Vaginal, Vacuum (Extractor), Apgar1: None, Apgar5: None, Living: Living, Comments: anemia ,elective induction, nuchal cord x2, left labial lac repaired # 3 - Date: None, Sex: None, Weight: None, GA: None, Delivery: None, Apgar1: None, Apgar5: None, Living: None, Comments: None documented in this encounter [facility] 09-17-2022 Miscellaneous Notes Formattin g of this note might be different from the original. DISTANCE HEALTH VISIT This Team Access Model visit is a phone encounter. It required patient-provider interaction for the medical decision making as documented below. Tam Guerin is a 37 year old female seen for PNOB visit. Advanced maternal age discussed. Noninvasive and invasive testing options discussed. Patient desires nuchal ultrasound and maternity 21 test. Contact information for integrated genetics sent to patient to check on insurance coverage. Patient has a history of ectopic . Quantitative hCGs have been drawn. She denies any bleeding pain or cramping this . Ectopic/miscarriage precautions given to patient. Patient is to call/come in if she develops any pain, bleeding, cramping or as needed problems. These records from ectopic are not available in care everywhere but her previous delivery records are and they are sent to Dr. De Jesus for review.Pt has a history of depression . Patient states she never took medication to treat the depression. She states that she did see a therapist in [place] discussed increased risks of depression during and and importance of reporting the development or worsening of symptoms should they occur. Pt denies ever having any suicidal thoughts or tendencies or thoughts of hurting others. Patient declines genetic carrier screening testing.Maria G Barriga RN documented in this encounter [facility] 09-14-2022 Miscellaneous Notes Formattin g of this note might be different from the original. Patient notified and voiced understanding. PNOB and New OB scheduled. Nery Nesbitt RN Please let the patient know that her quants are going up appropriately and she should schedule a new OB visit. Breanne Hdez APRN.KALPANA documented in this encounter [facility] 09-11-2022 Miscellaneous Notes Formattin g of this note might be different from the original. Left detailed message on patient's voicemail Hcg quants ordered. Patient should call with any bleeding or pain. Jeremias Edwards MD LMP 08/07/22 pt got a positive test on 09/10/22. Pt wanting to know , since she has had an ectopic in the past and her right fallopian tube had to be removed in 2018 pt then had a successful and delivered 09/12. Pt wanting to know if you would be willing to order quants for her to ease her mind and make sure that things are going the way they should be. Pt has not pain or other sxs. Please see pended order below and advise. Lynsey Olivia LPN documented in this encounter [facility] 09-08-2020 Physician Reina cline Discharge summary CLINICAL SUMMARY Please take this summary document to your follow up appointments. [facility] 09/08/20 12:26 [facility] [place] [place]. [address] PATIENT INFORMATION Name: TAM GUERIN Address: [address] [place] [id number] Age: 35 Years Phone: [phone] : 1985 12:[birth year] MRN: [id number] Sex: Female Race: White Ethnicity: Not Hispan/Lat Admitted From: [facility] Medical Service: Obstetric Nurse Unit/Bed: (IN) [facility] 3S93-43 Admit Date: 09/06/2020 20:10 PCP: Ruth Rich CNP PHYSICIANS INVOLVED WITH CARE Attending Physicians: Jun MAI , Jyoti - Gynecology, Obstetrics Admitting Physician: Jun MAI , Jyoti Weiner Gynecology, Obstetrics Primary Care Physician:Ruth Rich CNP,Nurse Practitioner, - Consults: Jonas Ya DO - Albert/ Med DIAGNOSES: (normal spontaneous vaginal delivery) Problems Active (12/01/2019) Allergies NKA Procedures No Procedures Documented MEASUREMENTS: Last Charted: Weight: 66.70 kg /147 lbs 1 oz ( 09/06/20 20:25:00 ) VITAL SIGNS: Last Charted: Pulse Rate: 84 BPM (09/08 09:00) Blood Pressure: 128/82 mm Hg (09/08 09:00) Pain Score: 1(09/08 09:00) CODE STATUS: Full Resuscitation Comment: Provide all therapy to prevent/treat cardiac or respiratory arrest. Last Bowel Movement: Date/Time: 09/08 07:00 09/08/2020 00:00 MENTAL STATUS: Level of Conciousness: Alert (09/08 12:00) Orientation: Oriented x 4 (09/08 12:00) MEDICATIONS ORDERED / RECOMMENDED TO BE CONTINUED for: TAM GUERIN ethinyl estradiol-norethindrone (Lo Loestrin Fe oral tablet) 1 Tab(s) By Mouth once a day. iron polysaccharide (iron polysaccharide 150 mg oral capsule) 1 Capsule By Mouth Twice a day for 30 Days. Refills: 3. multivitamin, ( Multivitamin) 1 Tab(s) By Mouth once a day. MEDICATION CHANGE DETAILS NEW MEDICATIONS None UPDATED MEDICATIONS None UNCHANGED MEDICATIONS Other Medications ethinyl estradiol-norethindrone (Lo Loestrin Fe oral tablet) 1 Tab(s) By Mouth once a day. Comment iron polysaccharide (iron polysaccharide 150 mg oral capsule) 1 Capsule By Mouth Twice a day for 30 Days. Refills: 3. Comment multivitamin, ( Multivitamin) 1 Tab(s) By Mouth once a day. Comment STOP TAKING THESE MEDICATIONS None DO NOT TAKE UNTIL YOU TALK TO YOUR DOCTOR None RECONCILING PROVIDER(S) 09/07/20 05:59:04 EDT Electronically Signed by Jyoti Barahona MD ethinyl estradiol-norethindrone (Lo Loestrin Fe oral tablet) iron polysaccharide (iron polysaccharide 150 mg oral capsule) multivitamin, ( Multivitamin) Inpatient Medication History (active at the time of summary): Do not administer these medications until re-evaluated by a provider at the next level of care. Vitamin- 1 mg FA ( 1+1 GEq) ( Multivitamin) 1 Tab, PO, Tab, Daily, x 30 Day(s), 09/07/20 5:59:00 EDT Last Dose: 09/08/20 09:52:00 COMMENTS and SPECIAL INSTRUCTIONS: Contains 1 mg Folic Acid Measles/Mumps/Rubella Vaccine Vial 0.5 mL (MMR II GEq) (M-M-R II*) 0.5 mL, Subcut, Inject, Prior to Discharge, x 30 Day(s),, 09/07/20 5:59:00 EDT COMMENTS and SPECIAL INSTRUCTIONS: Patients without rubella immunity should receive vaccination prior to discharge Diphtheria(Reduced)/Pertussis/T etanus Vaccine 0.5 mL (Adacel GEq) (Tdap (Reduced Diphtheria)*) 0.5 mL, IM, Inject (IM Only), Prior to Discharge, x 30 Day(s),, 09/07/20 5:59:00 EDT COMMENTS and SPECIAL INSTRUCTIONS: if not previously vaccinated Immune Globulin RHo (D) 300 mcg/2 mL Syringe (Rhophylac GEq) (Immune Globulin RHo (D)*) 300 mcg = 2 mL, IM, Inject, Once,, 09/07/20 5:59:00 EDT COMMENTS and SPECIAL INSTRUCTIONS: 300 mcg Rhophylac = 1500 IU Acetaminophen 325 mg Tab (Tylenol GEq) (Tylenol*) 650 mg = 2 Tab, PO, Tab, Q4h, PRN, Pain-Mild/Fever greater than 100. 4 (38C), x 30 Day(s), 09/07/20 5:59:00 EDT COMMENTS and SPECIAL INSTRUCTIONS: Maximum 4 Gm Acetaminophen/Day for Adults Ibuprofen 600 mg Tab (Motrin GEq) (Motrin*) 600 mg = 1 Tab, PO, Tab, Q6h, PRN, Pain - Mild, x 30 Day(s), 09/07/20 5:59:00 EDT Last Dose: 09/07/20 21:40:00 COMMENTS and SPECIAL INSTRUCTIONS: Maximum of 3200 mg / 24 hr HYDROcodone/Acetaminophen 5 mg/325 mg Tab ([place] 5 GEq) ([place] 5 mg/325 mg*) 1 Tab, PO, Tab, Q4h, x 30 Day(s), PRN Pain - Moderate, 09/07/20 5:59:00 EDT COMMENTS and SPECIAL INSTRUCTIONS: Maximum 4 Gm Acetaminophen/Day for Adults Docusate/Senna 50 mg/8.6 mg Tab (Senokot-S GEq) (Senokot-S) 1 Tab, PO, Tab, BID, x 30 Day(s), PRN Constipation, 09/07/20 5:59:00 EDT Last Dose: 09/08/20 (more content not included)... [facility] 09-08-2020 Hospital Progress note Patient: TAM GUERIN MRN: [id number] Age: 35 years Sex: Female : 1985 Associated Diagnoses: None Author: Jyoti Barahona MD Supervising Physician Comments Documentation By: Attending Physician. Chief Complaint Status post Normal spontaneous vaginal delivery. Health Status Allergies Allergic Reactions (Selected) NKA History of Present Illness History of Present Illness Patient is: day 1. General: no complaints. Pain is in: good control. Bleeding is: light. Patient is: breast and bottle feeding. Baby is: located in the room with patient, stable. Physical Examination Last Charted Vital Signs Temperature: 98.1 (09/07 21:00) Pulse: 86 (09/07 21:00) Respiration: 17 (09/07 21:00) BP: 134/84 (09/07 21:00) Activity: Awake (09/07 21:00) Pulse Ox: 99 (09/07 21:00) Oxygen Delivery: Not Charted O2 Device Flow: Pain Score: 3 (09/07 21:40) Intake and Output Intake and Output (Previous 24 Hrs) I and O Summary Begin date: 09/07 07:37 End date: 09/08 07:37 24 Hour Intake: 0.00 Output: 0.00 Balance: 0.00 Last BM: No BM Charted. Exam Assessment Assessment Patient is: day 1, doing well. Status post: normal spontaneous vaginal delivery. Plan Routine care: for vaginal delivery. Medication: stool softeners, Continue vitamins . Contraception planned: Will discuss in detail at p/p visit. Discharge home: July d/c home today or tomorrow. Return visit: 6 weeks for checkup. [facility] 09-07-2020 Anesthesiology Preoperative evaluation and management note Patient: TAM GUERIN Age: 35 years Sex: Female : 1985 Associated Diagnoses: None Author: Yovany Schaeffer CRNA Surgery Date: Histories Past Medical History: Active , Cardiovascular, Respiratory, Renal, Endocrine, Neurological, Musculoskeletal, Gastrointestinal, Hematology Social History: Smoking Status: Never smoked How Often Do You Drink ..: Never (0) E-Cig/Vaped Last 90 Day..: No Anesthesia History: No previous anesthetic complications Medications Allergies NKA All Medications Admission Med Reconciliation: Not Complete Home Medications: multivitamin, 1 Tab, PO, Daily,,, Each Last Dose: Not Charted iron polysaccharide 150 mg = 1 Cap, PO, Cap, BID, x 30 Day(s), 60,, Cap Last Dose: Not Charted ethinyl estradiol-norethindrone 1 Tab, PO, Daily,,, Each Last Dose: Not Charted Inpatient Medications: oxygen Routine, High Flow Nasal Cannula FIO2/LPM: 0, Nasal Cannula, 2 L/min, or 40% venti-mask to keep sat above 94%. Last Dose: Not Given Pharmacy Communication Order (unverified) 1 Each, Misc, Comm, Communication x 30 Day(s), 09/07/20 1:14:00 EDT , Comment: Do not give any other opiods (pain medications), or sedatives unless ordered by or cleared with anesthesia. Last Dose: Not Given Pharmacy Communication Order (unverified) 1 Each, Misc, Comm, Communication x 30 Day(s), 09/07/20 1:14:00 EDT , Comment: Notify anesthesia prior to starting ANY ANTICOAGULANT OR ANTIPLATELET MEDICATIONS. Last Dose: Not Given Pharmacy Communication Order (unverified) 1 Each, Misc, Comm, Communication x 30 Day(s), 09/07/20 1:14:00 EDT , Comment: Bupivacaine infusion initiated and maintained per anesthesia service Last Dose: Not Given Pharmacy Communication Order (unverified) 1 Each, Misc, Comm, Communication x 30 Day(s), 09/07/20 1:14:00 EDT , Comment: Ropivacaine infusion initiated and maintained per anesthesia service Last Dose: Not Given Pharmacy Communication Order (unverified) 1 Each, Misc, Comm, Communication x 30 Day(s), 09/07/20 1:14:00 EDT , Comment: RN may change epidural infusion container as needed Last Dose: Not Given Pharmacy Communication Order (unverified) 1 Each, Misc, Comm, Communication x 30 Day(s), 09/07/20 1:14:00 EDT , Comment: Patient has an epidural. Contact nurse to ensure anesthesia has been notified prior to starting ANY ANTICOAGULA Last Dose: Not Given Acetaminophen 325 mg Tab (Tylenol GEq) 650 mg = 2 Tab, PO, Tab, Q4h, PRN, Pain-Mild/Fever greater than 100.4 (38C) x 30 Day(s), 09/06/20 20:10:00 EDT , Comment: Maximum 4 Gm Acetaminophen/Day for Adults Last Dose: Not Given Lidocaine 1% Vial 30 mL PF (Xylocaine GEq) 30 mL, 300 mg, Subcut, Inject, Web Page Developer x 30 Day(s), PRN See Comments, 09/06/20 20:10:00 EDT , Comment: for vaginal repair Last Dose: Not Given Mineral Oil (medium) Liquid 30 mL 30 mL, Vag, Liq, Web Page Developer x 30 Day(s), PRN See Comments, 09/06/20 20:10:00 EDT , Comment: for vaginal delivery Last Dose: Not Given Pharmacy Communication Order (unverified) 1 Each, Misc, Comm, Communication x 30 Day(s), PRN See Comments, 09/07/20 1:14:00 EDT , Comment: Epidural Ropivacaine 0.2%Continuous rate: 10 ml/hourDemand dose: 5 mlLockout interval: Last Dose: Not Given Ropivacaine 0.2% 200 mg (unverified) 100 mL Continuous Rate 10 mL/hr Demand Dose 5 mL Lock-Out Interval 10 Min 4 Hour Limit: 80 mL, mL, mL/hr, mL, 100 mL, Epidural, Infusion, See Order Details x 30 Day(s), 09/07/20 1:14:00w Last Dose: Not Given Current IV Orders: Nalbuphine 10 mg/mL Inj 1 mL (Nubain GEq) 10 mg = 1 mL, IV Push, Inject, Q3h, PRN, Pain - Severe x 30 Day(s), 09/06/20 20:10:00 EDT Last Dose: 09/06/20 23:46:00 Ondansetron 2 mg/mL Inj 2 mL (Zofran GEq) 4 mg = 2 mL, IV Push, Inject, Once, PRN, Nausea/Vomiting, 09/06/20 20:10:00 EDT Last Dose: Not Given Comment: Administer IV Over 2 Minutes Naloxone 0.4 mg/mL Vial 1 mL (Narcan GEq) (unverified) 0.1 mg = 0.25 mL, IV Push, Inject, PRN, PRN, See Comments x 30 Day(s), 09/07/20 1:14:00 EDT Last Dose: Not Given Comment: For respiratory rate less than 8/minute and/or difficult to arouse page anesthesiologist STAT, may repeat naloxone (Narcan?) 0.2 mg IV push every 2 minutes to a max of 2 mg as necessary. Sodium Chloride 0.9% 1,000 mL 1,000 mL, 1,000 ml, 60 mL/hr, IV x 30 Day(s), Infusion, 09/06/20 20:52:00 EDT, 66.7 kg Last Dose: 09/06/20 21:32:00 Lactated Ringers 1,000 mL 1,000 mL, 1,000 ml, 125 mL/hr, IV x 30 Day(s), Infusion, 09/06/20 20:10:00 EDT Last Dose: 09/06/20 21:32:00 Oxytocin (RTU) 30 Unit [333 Milliunit/min] + Premixed in Sodium Chloride 0.9% 500 mL 500 mL, 500 ml, 333 mL/hr, IV x 30 Day(s), Infusion, 09/06/20 20:10:00 EDT Last Dose: Not Given Lactated Ringers (unverified) 500 mL, IV, Infusion, Once,, 09/07/20 1:14:00 EDT Last Dose: Not Given Comment: Bolus x 1 for symptomatic hypotens (more content not included)... [facility] 08-15-2020 S. agalactiae Org specific cx Ql (Genital specimen) [facility] Microbiology PROCEDURE: Culture Strep B Screen SOURCE: Vagina BODY SITE: COLLECTED DATE/TIME: 08/15/2020 08:46 EDT RECEIVED DATE/TIME: 08/15/2020 08:46 EDT START DATE/TIME: 08/15/2020 08:46 EDT FREE TEXT SOURCE: VAGINA-VAG INTERFACED REPORTS Final Report [] Verified Date/Time/Personnel: 08/17/2020 16:09 EDT CONTRIBUTOR_SYSTEM, CO_PN NO GROUP B BETA STREPTOCOCCUS ISOLATED COMBINED CULTURE OF THE VAGINAL AND RECTAL SITES IS MORE SENSITIVE THAN CULTURE OF EITHER SITE ALONE. CERVICAL SPECIMENS ARE LESS SENSITIVE AND NEGATIVE RESULTS SHOULD BE INTERPRETED WITH CAUTION. Preliminary Report [] Verified Date/Time/Personnel: 08/16/2020 20:12 EDT CONTRIBUTOR_SYSTEM, CO_PN CULTURE IN PROGRESS FINAL TO FOLLOW [facility] Diagnosis Antepartum multigravida of advanced maternal age- Primary with history of ectopic , antepartum History of depression, currently with other poor obstetric history [facility] Diagnosis with uncertain dates in first trimester- Primary with history of ectopic , antepartum AMA (advanced maternal age) multigravida 35+, first trimester Supervision of other high risk pregnancies, first trimester Encounter for screening of mother Unspecified screening documented in this encounter [facility] note* Diagnosis with uncertain dates in first trimester- Primary AMA (advanced maternal age) multigravida 35+, first trimester documented in this encounter [facility] note* Diagnosis 12 weeks gestation of - Primary state, incidental with uncertain dates in first trimester AMA (advanced maternal age) multigravida 35+, first trimester documented in this encounter [facility] note* Diagnosis AMA (advanced maternal age) multigravida 35+, first trimester- Primary Encounter for screening of mother Unspecified screening 12 weeks gestation of state, incidental documented in this encounter [facility] note* Diagnosis AMA (advanced maternal age) multigravida 35+, first trimester- Primary Supervision of high risk in second trimester Unspecified high-risk 16 weeks gestation of state, incidental documented in this encounter [facility] note* Diagnosis 19 weeks gestation of - Primary state, incidental AMA (advanced maternal age) multigravida 35+, first trimester Supervision of high risk in second trimester Unspecified high-risk documented in this encounter [facility] note* Diagnosis AMA (advanced maternal age) multigravida 35+, second trimester- Primary 24 weeks gestation of state, incidental documented in this encounter [facility] note* Diagnosis Encounter for supervision of high risk multigravida of advanced maternal age, antepartum- Primary 37 weeks gestation of state, incidental AMA (advanced maternal age) multigravida 35+, second trimester documented in this encounter [facility] note* Diagnosis AMA (advanced maternal age) multigravida 35+, third trimester- Primary Encounter for supervision of high risk multigravida of advanced maternal age, antepartum 39 weeks gestation of state, incidental documented in this encounter [facility] for referral (narrative)* Diagnostic Procedure Only (Routine) - Authorized Specialty Diagnoses / Procedures Referred By Contac t Referred To [facility] Diagnoses AMA (advanced maternal age) multigravida 35+, first trimester Supervision of other high risk pregnancies, first trimester Encounter for screening of mother Procedures NUCHAL TRANSLUCENCY WHI US NUCHAL TRANSLUCENCY 1ST GESTATION Jacob De Jesus MD [address] [place] [address] [id number] [place] [address] Referral ID Status Reason Start Date Expiration Date Visits Requested Visits Authorized [id number] Authorized Auto-Generat ed Referral 10/02/2022 10/02/2023 1 1 T [facility] Diagnostic Procedure Only (Routine) - Authorized Specialty Diagnoses / Procedures Referred By Oriana rizo Referred To Contact [facility] Diagnoses AMA (advanced maternal age) multigravida 35+, first trimester Supervision of high risk in second trimester Procedures OBSTETRIC ULTRASOUND WHI US PREG UTERUS AFTER 1ST TRIMEST GESTATION Jeremias Edwards MD [address] [place] [address] [facility] [address] [place] [id number] Referral ID Status Reason Start Date Expiration Date Visits Requested Visits Authorized [id number] Authorized Auto-Generat ed Referral 11/27/2022 11/27/2023 1 1 T [facility] Summary Purpose Family History No Family History Records FoundNo Family History Records FoundNo Family History Records Found Advance Directives No Advanced Directives Records FoundNo Advanced Directives Records FoundNo Advanced Directives Records Found Procedure Findings Note Patient: TAM GUERIN MR N: [id number] Age: 35 years Sex: Female : 1985 Associated Diagnoses: None Author: Ralph Downing CRNA Supervising Physician Comments Documentation By: Certified Registered Nurse Interrelated Special Education Teacher. Procedure Procedure - Anesthesia Procedure: Labor. Anesthesia Type: Epidural. Subjective Patient participated in the evaluation Yes. Nausea Not present. Vomiting Not present. Pain Acceptable pain control. Objective Objective Status: airway maintained without assistance. Vital Signs: Last Charted Vital Signs Temperature: 98.1 (09/07 21:00) Pulse: 86 (09/07 21:00) Respiration: 17 (09/07 21:00) BP: 134/84 (09/07 21:00) Activity: Awake (09/07 21:00) Pulse Ox: 99 (09/07 21:00) Oxygen Delivery: Not Charted O2 Device Flow: Pain Score: 3 (09/07 21:40) . Mental Status: alert and oriented. Postoperative hydration: adequate. Assessment Assessment: Post anesthetic condition: no anesthetic complications. Airway patent: yes. Plan Plan Postanesthesia Plan: post anesthetic surveillance concluded. Health Concerns Problem Noted Date Diagnosed Date [facility] - [facility] 10/02/2022 Education - [place] 10/02/2022 Problem Noted Date Diagnosed Date [facility] - [facility] 10/02/2022 Education - [place] 10/02/2022 Problem Noted Date Diagnosed Date [facility] - [facility] 10/02/2022 Education - [place] 10/02/2022 Problem Noted Date Diagnosed Date [facility] - [facility] 10/02/2022 Education - [place] 10/02/2022 Problem Noted Date Diagnosed Date [facility] - [facility] 10/02/2022 Education - [place] 10/02/2022 Problem Noted Date Diagnosed Date [facility] - [facility] 10/02/2022 Education - [place] 10/02/2022 Problem Noted Date Diagnosed Date [facility] - [facility] 10/02/2022 Education - [place] 10/02/2022 Problem Noted Date Diagnosed Date [facility] - [facility] 10/02/2022 Education - [place] 10/02/2022 Additional Source Comments INFORMATION SOURCE (unrecogn ized section and content) DATE CREATED AUTHOR AUTHOR'S ORGANIZ ATION 01/24/2021 [facility] DATE CREATED AUTHOR AUTHOR'S ORGANIZ ATION 05/10/2023 [facility] Source Comments (unrecognize d section and content) In the event this informatio n is protected by the Federal Confidentiality of Alcohol and Drug Abuse Patient Records regulations: The Federal rules restrict any use of the information to criminally investigate or prosecute any alcohol or drug abuse patient.[facility] the event this information is protected by the Federal Confidentiality of Alcohol and Drug Abuse Patient Records regulations: The Federal rules restrict any use of the information to criminally investigate or prosecute any alcohol or drug abuse patient.[facility] the event this information is protected by the Federal Confidentiality of Alcohol and Drug Abuse Patient Records regulations: The Federal rules restrict any use of the information to criminally investigate or prosecute any alcohol or drug abuse patient.[facility] the event this information is protected by the Federal Confidentiality of Alcohol and Drug Abuse Patient Records regulations: The Federal rules restrict any use of the information to criminally investigate or prosecute any alcohol or drug abuse patient.[facility] the event this information is protected by the Federal Confidentiality of Alcohol and Drug Abuse Patient Records regulations: The Federal rules restrict any use of the information to criminally investigate or prosecute any alcohol or drug abuse patient.[facility] the event this information is protected by the Federal Confidentiality of Alcohol and Drug Abuse Patient Records regulations: The Federal rules restrict any use of the information to criminally investigate or prosecute any alcohol or drug abuse patient.[facility] the event this information is protected by the Federal Confidentiality of Alcohol and Drug Abuse Patient Records regulations: The Federal rules restrict any use of the information to criminally investigate or prosecute any alcohol or drug abuse patient.[facility] the event this information is protected by the Federal Confidentiality of Alcohol and Drug Abuse Patient Records regulations: The Federal rules restrict any use of the information to criminally investigate or prosecute any alcohol or drug abuse patient.[facility] the event this information is protected by the Federal Confidentiality of Alcohol and Drug Abuse Patient Records regulations: The Federal rules restrict any use of the information to criminally investigate or prosecute any alcohol or drug abuse patient.[facility] the event this information is protected by the Federal Confidentiality of Alcohol and Drug Abuse Patient Records regulations: The Federal rules restrict any use of the information to criminally investigate or prosecute any alcohol or drug abuse patient.[facility] Center[facility] the event this information is protected by the Federal Confidentiality of Alcohol and Drug Abuse Patient Records regulations: The Federal rules restrict any use of the information to criminally investigate or prosecute any alcohol or drug abuse patient.[facility] the event this information is protected by the Federal Confidentiality of Alcohol and Drug Abuse Patient Records regulations: The Federal rules restrict any use of the information to criminally investigate or prosecute any alcohol or drug abuse patient.[facility] the event this information is protected by the Federal Confidentiality of Alcohol and Drug Abuse Patient Records regulations: The Federal rules restrict any use of the information to criminally investigate or prosecute any alcohol or drug abuse patient.[facility] Center[facility] the event this information is protected by the Federal Confidentiality of Alcohol and Drug Abuse Patient Records regulations: The Federal rules restrict any use of the information to criminally investigate or prosecute any alcohol or drug abuse patient.[facility] Reason for Visit (unrecogniz ed section and content) Specialty Diagnoses / Procedures Referred By Contthomas t Referred To Contact [facility] Diagnoses AMA (advanced maternal age) multigravida 35+, first trimester Supervision of other high risk pregnancies, first trimester Encounter for screening of mother Procedures NUCHAL TRANSLUCENCY WHI US NUCHAL TRANSLUCENCY 1ST GESTATION Jacob De Jesus MD [address] [place] [address] [facility] [address] [place] [address] Referral ID Status Reason Start Date Expiration Date V isits Requested Visits Authorized [id number] Closed Auto-Generate d Referral 10/02/2022 10/02/2023 1 1 Reason Comments Patient Question Reason Comments Results Reason Comments Care Reason Comments Initial OB Visit Reason Onset Date Comments Care 10/30/2022 Reason Onset Date Comments Care 11/27/2022 Reason Onset Date Comments Care 12/24/2022 Reason Onset Date Comments Care 01/22/2023 Reason Onset Date Comments Care 04/25/2023 Reason Onset Date Comments Population Health Navigation Outreach 05/01/2023 OB/PEDS Reason Onset Date Comments Care 05/08/2023 FOR RECORDS PERTAINING TO PATIENTS WHO ARE OR HAVE BEEN ENROLLED IN A CHEMICAL DEPENDENCY/SUBSTANCEABUSE PROGRAM, SOME INFORMATION MAY BE OMITTED. This clinical summary was aggregated from multiple sources. Caution should be exercised in using it in the provision of clinical care. This summary normalizes information from multiple sources, and as a consequence, information in this document may materially change the coding, format and clinical context of patient data. In addition, data may be omitted in some cases. CLINICAL DECISIONS SHOULD BE BASED ON THE PRIMARY CLINICAL RECORDS. [facility]. provides no warranty or guarantee of the accuracy or completeness of information in this document.
[2023-05-14] MEDS: Lactated Ringers 1,000 ML 50 ML IV (07:40)
[2023-05-14 08:05] LABS: Absolute Lymphocyte Count 1.19 X10^3/uL (0.83-4.51); Absolute Neutrophil Count 8.8 X10^3/uL (2.0-7.7); Basophil# 0.03 X10^3/uL; Basophil% 0.3 % (0-1); Eosinophil# 0.04 X10^3/uL; Eosinophils% 0.4 % (0-5); Hematocrit 40.9 % (37-47); Hemoglobin 13.5 g/dL (12.0-15.0); Lymphocyte # 1.19 X10^3/ul (0.83-4.51); Lymphocyte % 11.2 % (19-41); Mean Corpuscular Hgb 28.6 pg (27.0-32.0); Mean Corpuscular Volume 86.7 fL (81-99); Mean Platelet Vol. 13.6 fl (6.2-12.0); Monocyte# 0.39 X10^3/uL; Monocyte% 3.7 % (0-10); NRBC Flagged by Analyzer 0 % (0-5); Neutrophil % 82.6 % (47-70); Platelet Count 117 K/mm3 (150-450); RBC Distribution Width CV 14.2 % (11.6-14.6); RBC Distribution Width SD 44.5 fl (35.1-43.9); Red Blood Count 4.72 M/mm3 (4.2-5.4); White Blood Count 10.6 K/mm3 (4.4-11.0)
[2023-05-14] MEDS: Oxytocin 15 Units/NS 250ml 15 UNITS/250 ML IV.SOLN 2 UNITS IV (08:05)
--- NOTE | 2023-05-14 08:17 | PCM.HP.OB ---
HPI - General General Date of Admission: 05/14/23 HPI Narrative TAM GUERIN, is a 38 F who presents for induction of labor due to postdates and AMA, elective. at 40w0d. Maternal Data Information DUSTIN Calculator Estimated Delivery Date Method Current WG Current Estimate 05/14/23 Manual 40w 0d PFSH PFSH Medical History (Updated 05/14/23 @ 08:26 by Khadijah Hill) History of ectopic depression Home Medications 1 tablet PO DAILY 08/05/22 [History Last Taken 05/14/23] Allergy/AdvReac Type Severity Reaction Status Date / Time No Known Allergies Allergy Verified 05/14/23 08:05 Surgical History (Updated 08/05/22 @ 11:36 by Nery Sanches) History of tonsillectomy Social History Smoking Status: Never smoker History Elective abortions Hx Para 1 Spontaneous abortions Hx # Term Pregnancies Ectopic pregnancies Hx # Pregnancies Multiple births # of living children NST FHR Rate Baby A Baseline: 140 Variability:: Moderate Accelerations:: 15 x 15 Decelerations:: None FHR Category:: Category I Uterine Activity:: Every 3-4 minutes, mild ROS Constitutional Constitutional: Reports systems reviewed and no addt'l complaints, except as documented; Denies headache(s) Eyes Eyes: Denies acute decrease in peripheral vision, blurry vision or change in vision ENT HEENT: Reports systems reviewed and no addt'l complaints, except as documented Cardiovascular Cardiovascular: Denies chest pain or dizziness Respiratory/Chest Respiratory/Chest: Denies cough, dyspnea, dyspnea on exertion, shortness of breath at rest or shortness of breath with exertion Gastrointestinal Gastrointestinal: Denies abdominal pain, diarrhea, nausea or vomiting Genitourinary Genitourinary: Denies abdominal discomfort Musculoskeletal Musculoskeletal: Denies limited range of motion Integumentary Integumentary: Reports systems reviewed and no addt'l complaints, except as documented Neurologic Neurologic: Reports systems reviewed and no addt'l complaints, except as documented Psychiatric Psychiatric: Reports systems reviewed and no addt'l complaints, except as documented Endocrine Endocrinology: Reports systems reviewed and no addt'l complaints, except as documented Hematologic/Lymphatic Hematologic/Lymphatic: Reports systems reviewed and no addt'l complaints, except as documented Allergic/Immunologic Allergic/Immunologic: Reports systems reviewed and no addt'l complaints, except as documented Vital Signs Vital Signs Vital Signs: Weight Weight: 153 lb 3.54 oz Body Mass Index (BMI) 26.6 Physical Exam Const alert and oriented x3 General Appearance: cooperative Orientation / Consciousness: awake, oriented to person, oriented to place and oriented to time Exam Limitations: no limitations HEENT normocephalic Head and Scalp: normal to inspection, normocephalic and atraumatic Face and Sinus: normal facial exam Eyes General Eye: normal appearance of both eyes Neck full ROM Chest Chest: symmetrical chest wall rise Resp normal respiratory effort and normal air movement Auscultation: clear to auscultation bilaterally Cardio regular rate, regular rhythm, S1 normal heart sound, S2 normal heart sound, no murmurs, no rub, no gallops and no clicks GI normal to inspection, nondistended, normoactive bowel sounds and non-tender appearance of the vagina normal Bladder / Kidney Exam: no CVA tenderness Manual OB Exam: estimated gestational size appropriate, presentation cephalic, dilated 4, effaced 80, station 0 and other AROM clear fluid Back/Spine normal ROM Extremity normal to inspection and full ROM Skin no rashes or lesions noted Neuro oriented x3, CN's II-XII intact bilaterally and moves all extremities Sensorium / Orientation: awake, alert and oriented to person Motor Exam: clonus absent Deep Tendon Reflexes: Rt Patellar (L4): 2+ and Lt Patellar (L4): 2+ Labs Labs Labs: Blood Type B POSITIVE Antibody Screen NEGATIVE Hct 40.9 % (37-47) Hgb 13.5 g/dL (12.0-15.0) Syphilis Total Ab Non-reactive RPR negative GBS negative Rubella Immune HBsAG negative HIV negative HepC negative B positive GC/CT negative Assessment & Plan (1) History of depression: (2) Elective induction of labor planned: (3) Advanced maternal age (AMA) in : PLAN: Plan 1) Admit to labor and delivery 2) AROM and Pitocin for IOL 3) Routine labs 4) Continuous EFM/TOCO 5) Epidural for pain management upon request 6) Dr.James montelongo physician and notified of patient above assessment, plan and status
[2023-05-14 08:53] LABS: Syphilis Antibodies Non-reactive
[2023-05-14] MEDS: LACTATED RINGERS 500 ML 999 ML IV (10:37)
[2023-05-14] MEDS: fentaNYL-bupivacaine (epidural) 100 ML BAG EPIDURAL (11:19)
--- NOTE | 2023-05-14 14:02 | EX.PCM.OBRPT ---
Assessment & Plan (1) Vaginal delivery: (2) True knot in umbilical cord: Maternal Data Information DUSTIN Calculator Estimated Delivery Date Method Current WG Current Estimate 05/14/23 Manual 40w 0d Vaginal Delivery Maternal Presentation Maternal Presentation: Elective Induction Type of Induction: Pitocin and Amniotomy Operative Information Date of Procedure: 05/14/23 Pre-Operative Diagnosis: Elective Induction of labor, postdates and AMA Post-Operative Diagnosis: Surgery / Procedure Performed: Spontaneous Vaginal Delivery Type of Anesthesia: Epidural Estimated Blood Loss: 300 ml Time of Delivery: 13:49 Findings Presentation: Vertex and TOMA Amniotic Membrane Rupture Type: Artificial Amniotic Fluid Description: Clear Placental Delivery Description: Spontaneous Placenta Disposition: [facility] Cord Vessel Description: 3 Vessels Cord Entanglement: Around neck x 1, loose Nuchal Cord Compression: Without compression Infant A Gender: Male (1 minute): 8 (5 minute): 9 Delayed Cord Clamping: Yes Post Vaginal Delivery Medications Given After Delivery: IV Pitocin Episiotomy Description: None Laceration: None Complication Complications: None
[2023-05-14] MEDS: Oxytocin 15 Units/NS 250ml 15 UNITS/250 ML IV.SOLN 83 UNITS IV (14:23)
[2023-05-14] MEDS: 0.9% Saline Lock 10 ML Syringe IV (17:23)
[2023-05-15] VITALS (10 sets, daily range): BP systolic 121–142; BP diastolic 74–84; PULSE 89–106; RESP 16; TEMP 36.3–37.1; O2SAT 80–99
[2023-05-15] MEDS: Acetaminophen 500 MG Tablet 1000 MG PO (05:21)
[2023-05-15 05:40] LABS: Absolute Lymphocyte Count 1.59 X10^3/uL (0.83-4.51); Absolute Neutrophil Count 10.4 X10^3/uL (2.0-7.7); Basophil# 0.03 X10^3/uL; Basophil% 0.2 % (0-1); Eosinophil# 0.12 X10^3/uL; Eosinophils% 0.9 % (0-5); Hematocrit 36.3 % (37-47); Hemoglobin 12.2 g/dL (12.0-15.0); Lymphocyte # 1.59 X10^3/ul (0.83-4.51); Lymphocyte % 12.5 % (19-41); Mean Corp Hgb Conc 33.6 g/dL (32-36); Mean Corpuscular Hgb 29.5 pg (27.0-32.0); Mean Corpuscular Volume 87.7 fL (81-99); Mean Platelet Vol. 12.8 fl (6.2-12.0); Monocyte# 0.44 X10^3/uL; Monocyte% 3.5 % (0-10); NRBC Flagged by Analyzer 0 % (0-5); Neutrophil # 10.35 X10^3/uL (2.7-7.7); Neutrophil % 81.4 % (47-70); Platelet Count 116 K/mm3 (150-450); RBC Distribution Width CV 14.4 % (11.6-14.6); RBC Distribution Width SD 46.1 fl (35.1-43.9); Red Blood Count 4.14 M/mm3 (4.2-5.4); White Blood Count 12.7 K/mm3 (4.4-11.0)
--- NOTE | 2023-05-15 08:17 | DS.PCM_ITS ---
Providers Date of Admission: 05/14/23 Primary Care Physician: No Primary Care Phys Reason For Visit: VAGINAL DELIVERY Diagnosis Discharge Diagnosis (1) Vaginal delivery: Status: Acute Code(s): O80 - Encounter for full-term uncomplicated delivery (2) True knot in umbilical cord: Status: Acute Code(s): O69.2XX0 - Labor and delivery complicated by other cord entanglement, with com pression, not applicable or unspecified Medications at Discharge Home Medications 1 tablet PO DAILY 08/05/22 Hospital Course Operations None Procedures None Summary of Care Provided Minutes Spent on Discharge: 10 Hospital Course: Patient had . Hospital course was uneventful. Physical Exam Narrative Patient seen at bedside. without difficulty. Lochia mild. Denies any pain. Desires discharge home today. Const alert and no apparent distress General Appearance: cooperative and comfortable Exam Limitations: no limitations HEENT normocephalic Eyes General Eye: normal appearance of both eyes Neck full ROM General: normal visual inspection Chest Chest: symmetrical chest wall rise Resp normal respiratory effort and normal air movement Effort and Inspection: symmetric chest movement Auscultation: clear to auscultation bilaterally Cardio regular rate and regular rhythm GI normal to inspection, nondistended, normoactive bowel sounds Back/Spine normal ROM Extremity full ROM and no calf tenderness General Extremity: normal exam except as noted Skin no rashes or lesions noted Neuro CN's II-XII intact bilaterally Psych mental status grossly normal Weight / BMI Weight Weight: 153 lb 3.54 oz Body Mass Index (BMI) 26.6 ABG / Lab / Microbiology Data 05/15/23 05:25 Laboratory: Laboratory Results - last 24 hr 05/14/23 07:40: Syphilis Total Ab Non-reactive, Blood Type B POSITIVE, Antibody Screen NEGATIVE 05/15/23 05:25: WBC 12.7 H, RBC 4.14 L, Hgb 12.2, Hct 36.3 L, MCV 87.7, MCH 29.5, MCHC 33.6, RDW Std Deviation 46.1 H, RDW Coeff of Terrence 14.4, Plt Count 116 L, MPV 12.8 H, Immature Gran % (Auto) 1.500 H, Neut % (Auto) 81.4 H, Lymph % (Auto) 12.5 L, [place] % (Auto) 3.5, Eos % (Auto) 0.9, Baso % (Auto) 0.2, Absolute Neuts (auto) 10.4 H, Absolute Lymphs (auto) 1.59, Nucleated RBC % 0 D/C Instructions Discharge Diet: No restrictions May resume sexual activity in: 6-8 weeks Weight Bearing Status: Weight bearing as tolerated Call your doctor if you observe: Fever of 101 or Higher, Inability to urinate, Using more than 1 pad per hour, Shortness of breath, Chest pain, Calf discomfort and Uncontrolled pain Please Follow Up With: Rafaela Rodriguez CNM When: 2 weeks virtual visit/ 6 weeks in office Meaningful Use Info Meaningful Use Diagnoses (Choose all that apply): None applicable Discharge Plan Admission Admit Date/Time: 05/14/23 07:00 Primary Reason for Your Visit: Labor and Delivery Attending Provider: Ondina Guzmán Primary Care Provider: Care Physician,Leni Primary Discharge Orders/Prescriptions Prescriptions: No Action 1 tablet PO DAILY Referrals / Follow Up: Care Physician,No Primary [Primary Care Provider] - Disposition Disposition (needs filled in before D/C Order can be placed): Home, Self Care
--- NOTE | 2023-05-16 14:55 | CASEMGMT ---
Social Work Assessment Labor and Delivery Unit Patient Address:[address] [place], [place] [address] [address] Phone number: [phone] Date of Referral: 05/14/23 Time of Referral:? 1604 Referred By: Ondina Guzmán Date of Intervention: ??05/15/23 Time of Intervention:? 1000 Reason for Referral:? history of PPD Sw completed chart review and acknowledges social work consult due to maternal history of depression. Sw presented to bedside and introduced self to mother of baby (MOB- Vianney) and father of baby (FOB- Richi). Sw explained reason for sw involvement and completed psychosocial assessment. History obtained from: medical records, MOB and FOB Household composition: Currently residing in the family home is JASPER, ALEXA, their two year old daughter (Dee Dee Hitchcock - 2 years old) and now baby. Parents deny any issues or concerns with housing, reporting it is secure and safe. Patient's parent/guardian status:? ?JASPER and ALEXA have been together for 8 years. Parents state that they met online, and were friends for a year. ALEXA stated at that time he lived out of state, but when he returned to [place] he asked JASPER to go out with him. No concerns at this time regarding domestic violence or intimate partner violence. baby is second child together for parents. Medical History: ?JASPER is 38 year old female who is 2, para 1- now 2 following labor and delivery of MOB received routine care during with [facility]. JASPER presented to hospital on 05/14/23 for an induction of labor. JASPER delivered baby via vaginal delivery at 40 weeks gestation. Baby boy, named Dave Diaz, was born weighing 8lb 2oz and his apgars were 8 and 9 at one and five minutes of life respectfully. JASPER states that she is breast feeding and this is going well. JASPER reports that baby will be followed by Dr. Del Cid for pediatrics. Educational Status:? Both parents graduated from high school. FOB obtained a bachelors degree and JASPER has a trade certificate/ diploma. No concerns reported with reading, learning or comprehension. Financial Status: ALEXA is gainfully employed outside of the home, he reports to working in sales/ IT. MOB is a stay at home mom. Infant Supplies:?? Parents have obtained all necessary baby supplies, including: car seat, safe sleep space, clothes, diapers and wipes. JASPER states that she also has a breast pump. Childcare/Caregiver(s):? MOB will be the primary caregiver to baby along with FOVeena when he is not at work. Transportation:?? No barriers Programs/Agencies Involved: ?Parents are not connected to any community resources that provide financial assistance. ?? Children Services/Legal Issues:?No history of children services involvement. ?? Behavioral Health Issues: ??Mental Health History: FOVeena denies mental health diagnoses. MOB states that she has not been diagnosed with any mental health diagnoses but does have a history of depression. FOB states that he has experienced a lot of trauma in his life, but has not engaged in any mental health supports.FOB states that he has a very positive look on life and uses the experiences he has been through to stay positive. ??? Substance Use History:??Both parents deny any history of substances. Family History:?FOVeena states that his mom (paternal grandma) did have an addiction history. ALEXA states that paternal grandma has , and would not be identified as a caregiver to baby. ? Drug Screens: ?No drug screens observed during chart review. ? Family/Social Stressors:?Parents deny any stressors or concerns at this time. Support Systems: Parents report that they have a lot of natural supports in place. Depression/Shaken Baby/Safe Sleeping:? Sw provided education and literature on signs and symptoms of baby blues and depression and anxiety. Parents express understanding. Sw also educated parents on shaken baby prevention and ABCs of safe sleep. Parents express understanding. ASSESSMENT:? MOB and baby admitted following labor and delivery. Parents were engaged and talkative during assessment. Parents observed to be very supportive of each other and in tune with each other's needs. Parents have everything they need for baby and adequate family supports in place. Parents were receptive to sw involvement and support. PLAN:? MOB and baby to be discharged when medically ready. ?No other services requested or indicated. Georgina Hollingsworth, STOCKRO[employer] HELPER, MANAGER WOUND
== END 2023-05-15 17:15 | disposition home or self-care (01) | DRG 807 ==
PROVIDERS: Admitting Provider Advanced Practice Midwife; Referring Provider Advanced Practice Midwife; Visit Provider Advanced Practice Midwife
DX: O69.2XX0 Labor and delivery complicated by other cord entanglement, with compression, not applicable or unspecified (principal); Z37.0 Single live birth; Z3A.40 40 weeks gestation of pregnancy
CPT/HCPCS: 59025; 59050; 85025; 86780; 86850; 86900; 86901; 99221; J7120; A4216; G0378